=== PATIENT | female | born 1970 | race Hispanic/Latino ===

== ENCOUNTER 2021-01-23 15:30 | Emergency (ER) | payer OTHER ==
[~2021-01-23] VITALS: Ht 162.6 cm; Wt 90.7 kg
[2021-01-23 15:32] VITALS: BP 168/71
[2021-01-23] MEDS ORDERED: ONDANSETRON 4MG INJ IVP ONE (16:15)
[2021-01-23] MEDS ORDERED: 0.9%NACL 1000ML 1,000 ML IV ONE (16:15)
[2021-01-23] MEDS ORDERED: KETOROLAC 15MG/ML VIAL (15MG/ML) IV ONE (16:15)
[2021-01-23] MEDS ORDERED: MORPHINE 4 MG SYG IVP ONE (16:15)
[2021-01-23 16:40] LABS: BASOPHILS % (AUTO) 0.6 % (0.0-5.0); EOSINOPHILS % (AUTO) 1.8 % (0.0-8.0); HEMATOCRIT 42.4 % (36-48); LYMPHOCYTES % (AUTO) 23.9 % (21.0-51.0); MEAN CORPUSCULAR HEMOGLOBIN 29.8 pg (27.0-33.0); MEAN CORPUSCULAR VOLUME 90.2 fL (79-99); MONOCYTES % (AUTO) 6.6 % (3.0-13.0); NEUTROPHILS % (AUTO) 66.8 % (40.0-77.0); PLATELET COUNT (AUTO) 240 K/uL (130-400); RED CELL DISTRIBUTION WIDTH 13.7 % (11.0-15.5); WHITE BLOOD COUNT (AUTO) 8.8 K/uL (4.8-10.8)
[2021-01-23 16:42] LABS: APPEARANCE,URINE Clear (CLEAR); BILIRUBIN,URINE Negative (NEGATIVE); COLOR,URINE Yellow (YELLOW); GLUCOSE, URINE (UA) TRACE mg/dL (NEGATIVE); KETONES,URINE Negative (NEGATIVE); LEUKOCYTE ESTERASE ,URINE Negative (NEGATIVE); NITRATE,URINE Negative (NEGATIVE); OCCULT BLOOD,URINE Negative (NEGATIVE); PROTEIN,URINE Negative (NEGATIVE); UROBILINOGEN,URINE 0.2 mg/dL (0.2-1.0)
[2021-01-23 16:51] LABS: CREATININE 1.1 mg/dL (0.5-1.5); POTASSIUM 3.6 mmol/L (3.5-5.1)
[2021-01-23 16:54] LABS: BACTERIA,URINE Few /HPF (None Seen); MUCUS,URINE Few LPF (None Seen); RBC,URINE 0-1 /HPF (0-1); SQUAMOUS EPITHELIAL CELL,UR Few /HPF (0-2); WBC,URINE 0-1 /HPF (0-1)
[2021-01-23 17:01] LABS: ALBUMIN 3.8 g/dL (3.5-5.0); BILIRUBIN,TOTAL 0.4 mg/dL (0.2-1.0)
[2021-01-23] MEDS ORDERED: ONDANSETRON 4MG INJ ONE (17:39)
[2021-01-23] MEDS ORDERED: KETOROLAC 15MG/ML VIAL (15MG/ML) ONE (17:40)
[2021-01-23] MEDS ORDERED: MORPHINE 4 MG SYG ONE (17:40)
[2021-01-23] MEDS ORDERED: DiphenhydrAMINE HCL 50 MG/ML VIAL IV ONE (18:00)
[2021-01-23] MEDS ORDERED: METOCLOPRAMIDE 10 MG/2 ML VIAL IVP ONE (18:00)
[2021-01-23] MEDS ORDERED: DiphenhydrAMINE HCL 50 MG/ML VIAL ONE (18:03)
[2021-01-23] MEDS ORDERED: METOCLOPRAMIDE 10 MG/2 ML VIAL ONE (18:03)
[2021-01-23] MEDS ORDERED: TYL4 PO (18:28)
[2021-01-23] MEDS ORDERED: ORPH100 PO (18:28)
== END 2021-01-23 19:14 | disposition home or self-care (01) ==
LOC: EDH 15:30
DX: S39.011A Strain of muscle, fascia and tendon of abdomen, initial encounter (principal); R51.9 Headache, unspecified; I10 Essential (primary) hypertension; E78.49 Other hyperlipidemia; Z79.899 Other long term (current) drug therapy; X58.XXXA Exposure to other specified factors, initial encounter; Y93.89 Activity, other specified; Y92.89 Other specified places as the place of occurrence of the external cause; Y99.8 Other external cause status
CPT/HCPCS: 36415; 70450; 74176; 80053; 81001; 83690; 84702; 85025; 96374; 96375; 99285; J1200; J2405; J2765; J1885; J2270

== ENCOUNTER 2022-09-09 15:19 | Emergency (ER) | payer OTHER ==
[~2022-09-09] VITALS: Ht 162.6 cm; Wt 89.8 kg
[~2022-09-09 15:19] MED LIST: ORPH100 PO; TYL4 PO
[2022-09-09 15:55] VITALS: BP 148/91
[2022-09-09] MEDS ORDERED: MOLN200C PO (16:55)
[2022-09-09] MEDS ORDERED: BENZ200C53 PO (16:55)
== END 2022-09-09 17:11 | disposition home or self-care (01) ==
LOC: EDH 15:19
DX: U07.1 COVID-19 (principal); B34.9 Viral infection, unspecified; I10 Essential (primary) hypertension; Z90.49 Acquired absence of other specified parts of digestive tract
CPT/HCPCS: 99283; 87635; 87880; 87804 ×2; C9803

== ENCOUNTER → 2023-06-17 | Emergency (ER) | payer OTHER ==
[~2023-06-17] VITALS: Ht 162.6 cm; Wt 84.8 kg
[~2023-06-17] MED LIST changes: +BENZ200C53 PO; +CYCL-309 PO; +CYCLOBENZAPRINE HCL 10 MG TABLET PO ONE; +IBUP-2070 PO; +IBUPROFEN 600 MG TABLET PO ONE; +MOLN200C PO
[2023-06-17 18:51] VITALS: BP 132/72; PULSE 74; RESP 18; O2SAT 98
== END ==
LOC: EDH 16:46
DX: S39.012A Strain of muscle, fascia and tendon of lower back, initial encounter (principal); I10 Essential (primary) hypertension; Z90.49 Acquired absence of other specified parts of digestive tract; V89.2XXA Person injured in unspecified motor-vehicle accident, traffic, initial encounter; Y93.89 Activity, other specified; Y92.89 Other specified places as the place of occurrence of the external cause; Y99.8 Other external cause status
CPT/HCPCS: 72100